=== PATIENT | female | born 1955 | race Caucasian/White ===

== ENCOUNTER 2025-06-08 10:27 | Day surgery (SDC) | payer MEDICARE, OTHER ==
[2025-06-07 13:02] VITALS: BMI 27.4
[2025-06-08 12:01] LABS: Hematocrit 38.7 % (34.9-44.5); Hemoglobin 13.3 g/dL (12.0-15.5)
[2025-06-08 12:13] LABS: Anion Gap 14 mmol/L (10-20); BUN (Urea Nitrogen) 10 mg/dL (9.8-20.1); Calc. Creatinine Clearance 69 mL/min (70-130); Calcium 9.2 mg/dL (7.8-10.44); Carbon Dioxide 27 mmol/L (23-31); Chloride 104 mmol/L (98-107); Glucose 100 mg/dL (83-110); Potassium 3.7 mmol/L (3.5-5.1); Sodium 141 mmol/L (136-145)
[2025-06-08] MEDS ORDERED: Lidocaine 1% w/Epinephrine 1:200K 30 ML VIAL ONE (16:56)
[2025-06-08] MEDS ORDERED: AFRIN NASAL MIST 15 ML BOT ONE (16:56)
[2025-06-08] MEDS ORDERED: Bacitracin 1 PK ONE (17:59)
[2025-06-08] MEDS ORDERED: oxyCODONE 5 MG TAB ONE (18:43)
== END 2025-06-08 19:10 | disposition home or self-care (01) ==
LOC: CSHSDC 10:27
PROVIDERS: ATTEND Specialist
PROC: 0HQ1XZZ Repair Face Skin, External Approach (ICD-10-PCS; principal; 2025-06-08)
PROC: 0NSBXZZ Reposition Nasal Bone, External Approach (ICD-10-PCS; 2025-06-08)
DX: S02.2XXA Fracture of nasal bones, initial encounter for closed fracture (principal); S01.21XA Laceration without foreign body of nose, initial encounter; I10 Essential (primary) hypertension; E78.5 Hyperlipidemia, unspecified; K21.9 Gastro-esophageal reflux disease without esophagitis; Z88.5 Allergy status to narcotic agent; Z91.048 Other nonmedicinal substance allergy status; Z79.899 Other long term (current) drug therapy; W19.XXXA Unspecified fall, initial encounter
CPT/HCPCS: 12051; 21320; 80048; 85014; 85018; 93005; J3010; 93010